=== PATIENT | female | born 2000 | race African-American/Black ===

== ENCOUNTER 2021-01-09 22:32 | Emergency (ER) | payer OTHER ==
[~2021-01-09] VITALS: Ht 170.2 cm; Wt 61.7 kg
[2021-01-09 22:42] VITALS: BP 135/70
[2021-01-09] MEDS ORDERED: NACL 0.9% 1,000 ML IV ONE (23:00)
[2021-01-09] MEDS ORDERED: KETOROLAC 30 MG/ML VIAL IVP ONE (23:00)
--- NOTE | 2021-01-09 23:29 | NUR ---
PT TAKEN TO BED 4
--- NOTE | 2021-01-09 23:40 | NUR ---
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 PT STATES SHE HAS NOT EATEN MUCH TODAY AND BECAME WEAK. ALSO CONCERNED AFTER STARTING NEW PRESCRIPTION FOR DEPRESSION. LAYS ON GURNEY AND KEEPS EYES CLOSED. RESPIRATIONS REGULAR AND UNLABORED
--- NOTE | 2021-01-09 23:56 | NUR ---
Dr. Weller examining patient.
[2021-01-10] MEDS ORDERED: KETOROLAC 30 MG/ML VIAL ONE (00:09)
[2021-01-10 00:16] LABS: BASOPHILS % (AUTO) 0.1 % (0.0-2.0); EOSINOPHILS % (AUTO) 0.1 % (0.0-4.0); HEMATOCRIT 36.2 % (36-48); HEMOGLOBIN 12.5 g/dL (12.0-16.0); LYMPHOCYTES # (AUTO) 0.6 K/uL (2.5-16.5); LYMPHOCYTES % (AUTO) 4.2 % (20.5-51.1); MEAN CORPUSCULAR HEMOGLOBIN 31 pg (27-31); MEAN CORPUSCULAR HGB CONC 35 g/dL (33-37); MEAN CORPUSCULAR VOLUME 90.3 fL (80-94); NEUTROPHILS # (AUTO) 12.7 K/uL (1.8-7.7); NEUTROPHILS % (AUTO) 88.6 % (42.2-75.2); PLATELET COUNT (AUTO) 251 K/uL (140-450); RED BLOOD CELL COUNT(AUTO) 4.01 MIL/uL (4.20-5.40); RED CELL DISTRIBUTION WIDTH 12.6 % (11.6-13.7); WHITE BLOOD COUNT (AUTO) 14.3 K/uL (4.8-10.8)
[2021-01-10] MEDS ORDERED: IBUP-2213 PO (00:18)
[2021-01-10 00:24] LABS: ANION GAP 14.9 (8-16); CARBON DIOXIDE 24.2 mmol/L (21-32); POTASSIUM 4.1 mmol/L (3.5-5.1)
--- NOTE | 2021-01-10 01:13 | NUR ---
AMBULATED TO BR FOR UA
[2021-01-10 01:35] VITALS: BP 135/70
--- NOTE | 2021-01-10 01:35 | NUR ---
Patient discharged with v/s stable. Written and verbal after care instructions given and explained. Patient verbalized understanding. Ambulatory with steady gait. All questions addressed prior to discharge. Advised to follow up with PMD.
== END 2021-01-10 01:35 | disposition home or self-care (01) ==
LOC: MED 22:32
DX: R55 Syncope and collapse (principal); R51.9 Headache, unspecified; F12.90 Cannabis use, unspecified, uncomplicated; Z79.899 Other long term (current) drug therapy
CPT/HCPCS: 36415; 80048; 81002; 81025; 85025; 93005; 96361; 96374; 99284; J1885; J7030